=== PATIENT | male | born 1975 | race Caucasian/White ===

== ENCOUNTER 2017-06-10 22:19 | Inpatient (IN) | payer OTHER ==
[~2017-06-10] VITALS: Ht 185.4 cm; Wt 148.2 kg
[2017-06-10 22:36] LABS: BASOPHIL (%) 0.2 % (0-1); EOSINOPHIL (%) 1.6 % (0-5); EOSINOPHIL COUNT 0.2 K/uL (0-0.3); HEMATOCRIT 41.4 % (38.0-50.0); HEMOGLOBIN 13.9 G/DL (12.5-16.6); IMMATURE GRANULOCYTE (%) 0.3 % (0.0-0.7); LYMPHOCYTE (%) 31.3 % (15-42); LYMPHOCYTE COUNT 3.9 K/uL (1.0-2.8); MCH 29.5 PG (29.0-34.0); MCHC 33.6 G/DL (30.0-36.0); MCV 87.9 FL (86-99); MONOCYTE (%) 7.7 % (3-12); NEUTROPHIL (%) 58.9 % (45-76); NEUTROPHIL COUNT 7.3 K/uL (1.8-6.4); PLATELET COUNT 182 K/uL (156-360); RBC DIS.WIDTH-CV 12.7 % (11.8-14.6); RED BLOOD COUNT 4.71 M/uL (4.00-5.50); WHITE BLOOD COUNT 12.3 K/uL (4.1-10.2)
[2017-06-10 22:45] LABS: AMYLASE 65 IU/L (1-118); CHLORIDE 112 mEq/L (99-109); POTASSIUM 3.7 mEq/L (3.7-5.4); SODIUM 140 mEq/L (136-147)
[2017-06-10 22:47] LABS: GLUCOSE 136 mg/dL (70-99)
[2017-06-10 22:50] LABS: SERUM ETHYL ALCOHOL < 10 mg/dL
[2017-06-10 22:51] LABS: CREATININE 0.9 mg/dL (0.6-1.3)
[2017-06-10 22:52] LABS: UREA NITROGEN (BUN) 24 mg/dL (9-23)
[2017-06-10 22:54] LABS: LIPASE 42 U/L (1.0-51.0)
[2017-06-10 22:58] LABS: GFR ESTIMATE (CALCULATED) > 59 mL/min/ (58.99-99999)
[2017-06-11] VITALS (8 sets, daily range): BP systolic 125–148; BP diastolic 63–87
[2017-06-11] MEDS ORDERED: TOPAMAX50 MG PO (00:32)
[2017-06-11] MEDS ORDERED: SYNTHROID150 MCG PO (00:32)
[2017-06-11] MEDS ORDERED: PROZAC20 MG PO (00:33)
[2017-06-11] MEDS ORDERED: WELLBUTRIN SR100 MG PO (00:34)
[2017-06-11] MEDS ORDERED: PRILOSEC OTC20 MG PO (00:35)
[2017-06-11 01:54] LABS: APPEARANCE CLEAR ((CLEAR)); BILIRUBIN NEGATIVE; BLOOD NEGATIVE; COLOR STRAW ((YELLOW)); GLUCOSE (STRIP) NEGATIVE; KETONES NEGATIVE; LEUKOCYTES NEGATIVE; NITRITE NEGATIVE; PROTEIN (STRIP) NEGATIVE; UCUL ADDED? NO; UROBILINOGEN 0.2 MG/DL (0.2-1.0)
[2017-06-11 02:04] LABS: AMPHETAMINE NEGATIVE (500 ng/mL); BARBITURATES NEGATIVE (200 ng/mL); BENZODIAZEPINES NEGATIVE (150 ng/mL); BUPRENORPHINE NEGATIVE (10 ng/mL); COCAINE NEGATIVE (150 ng/mL); METHADONE NEGATIVE (200 ng/mL); METHAMPHETAMINE NEGATIVE (500 ng/mL); OPIATES (MORPHINE) NEGATIVE (100 ng/mL); OXYCODONE NEGATIVE (100 ng/mL); PHENCYCLIDINE NEGATIVE (25 ng/mL); PROPOXYPHENE NEGATIVE (300 ng/mL); THC CANNABINOIDS NEGATIVE (50 ng/mL); TRICYCLIC ANTIDEPRESSANTS NEGATIVE (300 ng/mL)
[2017-06-12 03:52] VITALS: BP 165/83
[2017-06-12 08:11] VITALS: BP 127/74
[2017-06-12 11:48] VITALS: BP 128/71
[2017-06-12] MEDS ORDERED: COLACE100 MG PO (13:04)
[2017-06-12] MEDS ORDERED: PERCOCET 5/31 TABLET PO (13:04)
[2017-06-12 15:45] VITALS: BP 129/82
[2017-06-12 19:47] VITALS: BP 133/83
[2017-06-12 23:59] VITALS: BP 141/83
[2017-06-13 03:57] VITALS: BP 126/69
[2017-06-13 07:47] VITALS: BP 121/71
== END 2017-06-13 11:44 | disposition home or self-care (01) | DRG 563 ==
LOC: TRA 22:19 → EDBD 22:19 → EDOF 06-11 00:25 → 3EAST 06-11 00:25 → ENRESERV 06-11 00:26 → 3EAST 06-11 01:48
PROVIDERS: Emergency Medicine Emergency Medical Services
DX: S42.302A Unspecified fracture of shaft of humerus, left arm, initial encounter for closed fracture (principal); S01.01XA Laceration without foreign body of scalp, initial encounter; R10.9 Unspecified abdominal pain; R91.1 Solitary pulmonary nodule; M79.602 Pain in left arm; M79.1 Myalgia; M79.601 Pain in right arm; K59.00 Constipation, unspecified; Y93.01 Activity, walking, marching and hiking; S30.1XXA Contusion of abdominal wall, initial encounter; E66.9 Obesity, unspecified; R51 Headache; Y92.410 Unspecified street and highway as the place of occurrence of the external cause; Y93.9 Activity, unspecified; Z68.41 Body mass index [BMI] 40.0-44.9, adult; V04.10XA Pedestrian on foot injured in collision with heavy transport vehicle or bus in traffic accident, initial encounter; Y92.9 Unspecified place or not applicable
CPT/HCPCS: 70450; 70486; 71260; 72125; 72129; 72132; 73060; 73090; 74177; 80048; 81003; 82150; 83690; 85025; 86850; 86900; 86901; 97530 GO; 99281; 99285; G0480; J1170; J2270; J3010; J7030